=== PATIENT | female | born 1965 | race Caucasian/White ===

== ENCOUNTER → 2017-01-12 | Outpatient (CLI) | payer OTHER, BC ==
--- NOTE | 2017-01-12 14:46 | REPMRS ---
Patient History The patient states she had a clinical breast exam in Patient is postmenopausal. No known family history of cancer. Digital Woman Screen Mammo: January 12, 2017 - Exam #: [id number] Bilateral CC and MLO view(s) were taken. Technologist: Holly Morris, Technologist Prior study comparison: July 14, 2011, digital woman screen mammo performed at [facility]. June 12, 2008, bilateral bilat screen digital mammo performed at [facility] to [facility]. FINDINGS: The breast tissue is heterogeneously dense. This may lower the sensitivity of mammography. There has been no change in the appearance of the mammogram from the prior studies. There is a moderate amount of residual fibroglandular tissue which is fairly symmetric. There is no interval development of dominant mass, areas of architectural distortion, or clustered microcalcification typical of malignancy. ASSESSMENT: BI-RADS/ACR category 1 mammogram. Negative. Recommendation Routine screening mammogram in 1 year (for women over age 40). This mammogram was interpreted with the aid of an FDA-approved computer-aided dectection system. Electronically Signed By: Davis Villanueva MD 01/12/17 [id number]
== END ==
LOC: M WHC 12:59
PROVIDERS: ATTEND Family Medicine
DX: Z12.31 Encounter for screening mammogram for malignant neoplasm of breast (principal); R92.8 Other abnormal and inconclusive findings on diagnostic imaging of breast; Z78.0 Asymptomatic menopausal state

== ENCOUNTER → 2017-01-12 | Outpatient (REF) | payer OTHER, BC | LOC: M SFHCWAGY 13:53 | PROVIDERS: ATTEND Nurse Practitioner Women's Health | DX: Z12.4 Encounter for screening for malignant neoplasm of cervix (principal) ==

== ENCOUNTER → 2017-04-20 | Outpatient (REF) | payer OTHER, BC | LOC: M LAB REF 17:09 | DX: A51.31 Condyloma latum (principal) ==

== ENCOUNTER → 2019-03-28 | Outpatient (REF) | payer OTHER ==
[~2019-03-28] MED LIST: ASPI81TA26 PO; ATOR1TAB21; LISI40TA; METO1TAB87; VITA2000 PO
== END ==
LOC: M SFHCWAGY 13:39
PROVIDERS: ATTEND Nurse Practitioner Women's Health
DX: Z12.4 Encounter for screening for malignant neoplasm of cervix (principal)

== ENCOUNTER → 2019-03-28 | Outpatient (CLI) | payer BC, OTHER ==
--- NOTE | 2019-03-28 12:30 | REP ---
BILATERAL SCREENING DIGITAL MAMMOGRAM WITH 3D TOMOSYNTHESIS: There are no palpable abnormalities or other breast complaints. The the patient states she had a clinical breast examination February,. The the patient states she performs self-breast examinations 12 times per year. The Tyrer Cuzick Score is: 9.1%. . Comparison is 01/12/2017 and 07/04/2011. The breasts are heterogeneously dense, which could obscure small masses. There is no dominant mass, micro calcific cluster or architectural distortion that would indicate malignancy. There are no additional findings on 3D tomosynthesiss. There is no change from the prior study. Impression: BIRADS/ACR category 1 mammogram. Negative. Recommendation: Routine annual screening mammography. Because of the increased breast density, annual adjunctive breast MRI in addition to screening mammography is recommended. These can be performed at alternating six month intervals. This mammogram was interpreted with the aid of a FDA approved computer-aided detection system. A. Negative mammogram reports should not delay biopsy if a dominant or clinically suspicious mass is present. B. Not all breast cancers are identified by mammography or tomosynthesis. C. Adenosis and dense breasts may obscure an underlying neoplasm. Patient letter M1 dense breasts. Electronically Signed by Davis Awad MD 03/28/2019 12:20 P
== END ==
LOC: M WHC 10:02
PROVIDERS: ATTEND Nurse Practitioner Women's Health
DX: Z12.31 Encounter for screening mammogram for malignant neoplasm of breast (principal)